=== PATIENT | female | born 1960 | race American Indian/Alaskan Native ===

== ENCOUNTER 2019-09-17 22:25 | Emergency (ER) | payer SELFPAY ==
[2019-09-17] MEDS ORDERED: LORazepam 2 MG/ML VIAL IV ONE (22:55)
[2019-09-17] MEDS ORDERED: GLUCAGON (HUMAN RECOMBINANT) 1 MG/ML INJ IV ONE (22:55)
[2019-09-17] MEDS ORDERED: NITROGLYCERIN 0.4 MG TAB SUBL SL ONE ×2 (23:18→23:19)
--- NOTE | 2019-09-17 23:44 | Emergency Department Report ---
ED General Adult HPI - General Chief complaint: Skin/Abscess/Foreign Body Stated complaint: CHOKING Time Seen by Provider: 09/17/19 22:30 Source: EMS Mode of arrival: Stretcher Limitations: No Limitations - History of Present Illness Initial comments: 58 yo F w/ presents to the ED stating that it feels as if a piece of steak is lodged in her esophagus. No prior history of this. Denies any medical problems. -: This evening Quality: other (pressure) Consistency: constant Improves with: none Worsens with: none Associated Symptoms: nausea/vomiting Treatments Prior to Arrival: none - Related Data Previous Rx's Medication Instructions Recorded Last Taken Type Esomeprazole Magnesium [NexIUM] 40 mg PO QDAY #30 capsule. 09/18/19 Unknown Rx Allergies Allergy/AdvReac Type Severity Reaction Status Date / Time No Known Allergies Allergy Unverified 09/17/19 23:02 ED Review of Systems ROS: Stated complaint: CHOKING Other details as noted in HPI Comment: All other systems reviewed and negative Gastrointestinal: as per HPI ED Past Medical Hx - Medications Home Medications: Home Medications Medication Instructions Recorded Confirmed Last Taken Type Esomeprazole Magnesium [NexIUM] 40 mg PO QDAY #30 capsule. 09/18/19 Unknown Rx ED Physical Exam - General Limitations: No Limitations General appearance: alert, in no apparent distress - Head Head exam: Present: atraumatic, normocephalic - Eye Eye exam: Present: normal appearance, EOMI - ENT ENT exam: Present: mucous membranes moist - Neck Neck exam: Present: normal inspection - Respiratory Respiratory exam: Present: normal lung sounds bilaterally. Absent: respiratory distress - Cardiovascular Cardiovascular Exam: Present: regular rate, normal rhythm - GI/Abdominal GI/Abdominal exam: Present: soft. Absent: distended, tenderness ED Course Vital Signs 09/17/19 09/17/19 09/17/19 22:30 22:44 23:20 Temperature 98.1 F Pulse Rate 115 H 97 H Respiratory 20 20 Rate Blood Pressure 171/131 Blood Pressure 159/93 [Right] O2 Sat by Pulse 99 99 Oximetry 09/18/19 09/18/19 09/18/19 02:24 05:43 07:10 Temperature 98.3 F Pulse Rate 83 89 96 H Respiratory 20 17 20 Rate Blood Pressure 185/89 Blood Pressure 141/78 145/85 [Right] O2 Sat by Pulse 98 99 99 Oximetry 09/18/19 09/18/19 08:01 08:15 Temperature 98.0 F Pulse Rate 75 84 Respiratory 16 20 Rate Blood Pressure 175/86 128/77 Blood Pressure [Right] O2 Sat by Pulse 97 98 Oximetry - Reevaluation(s) Reevaluation #1: 09/17/19 23:42 Pt given ativan, SL nitro, glucagon, coca cola. No improvement. - Consultations Consultation #1: 09/18/19 23:45 Spoke w/ Dr Hagan. Will scope pt first thing in AM. ED Medical Decision Making - Medical Decision Making 58 yo F w/ impacted food bolus, scoped by GI with removal of food bolus. Will d/c home w/ prescriptions. Outpt f/u with GI. - Differential Diagnosis impacted food bolus Critical care attestation.: If time is entered above; I have spent that time in minutes in the direct care of this critically ill patient, excluding procedure time. ED Disposition Clinical Impression: Esophageal obstruction due to food impaction Disposition: DC- TO HOME OR SELFCARE Is pt being admited?: No Condition: Stable Instructions: Food Impaction (ED) Prescriptions: Esomeprazole Magnesium [NexIUM] 40 mg PO QDAY #30 capsule. Referrals: PRIMARY CARE, [Primary Care Provider] - 3-5 Days CLOTILDE HAGAN MD [Staff Physician] - as needed
[2019-09-18] MEDS ORDERED: SODIUM CHLORIDE 0.9% 1000 ML 1,000 ML IV SCH (06:45)
[2019-09-18] MEDS ORDERED: propofoL 200 MG/20 ML VIAL IV ONE ×2 (07:29)
[2019-09-18] MEDS ORDERED: MIDAZOLAM 2 MG/2 ML INJ ONE (07:30)
--- NOTE | 2019-09-18 07:38 | Consultation ---
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 No prior hx of GERD. Denies prior similar symptoms. No weight loss. No CP or SOB. Has mild chest fullness at present. Has hx of panic attacks. Meds reviewed. Past History Past Medical History: hypertension Past Surgical History: Social history: no significant social history Medications and Allergies Allergies Allergy/AdvReac Type Severity Reaction Status Date / Time No Known Allergies Allergy Unverified 09/17/19 23:02 Active Meds: Active Medications Sodium Chloride (Nacl 0.9% 1000 Ml) 1,000 mls @ 50 mls/hr IV DIRECT NILDA Review of Systems All systems: negative (as noted) Exam - Constitutional Vitals: Temp Pulse Resp BP Pulse Ox 98.1 F 89 17 145/85 99 09/17/19 22:30 09/18/19 05:43 09/18/19 05:43 09/18/19 05:43 09/18/19 05:43 General appearance: Present: no acute distress, other (anxious) - EENT Eyes: Present: PERRL, EOM intact ENT: hearing intact - Respiratory Respiratory effort: normal Respiratory: bilateral: CTA - Cardiovascular Rhythm: regular Heart Sounds: Present: S1 & S2 - Extremities Extremities: No edema - Abdominal General gastrointestinal: Present: soft, non-tender Assessment and Plan 1. Esophageal food impaction - will do EGD.
--- NOTE | 2019-09-18 07:39 | Anesthesia Consultation ---
Anesthesia Consult and Med Hx Date of service: 09/18/19 - Airway Anesthetic Teeth Evaluation: Dentures ROM Head & Neck: Adequate Mental/Hyoid Distance: Adequate Mallampati Class: Class II Intubation Access Assessment: Probably Good - Pre-Operative Health Status ASA Pre-Surgery Classification: ASA3 Proposed Anesthetic Plan: MAC - Pulmonary Hx Smoking: Yes (1/2 ppd) Hx Asthma: No Hx Respiratory Symptoms: No SOB: No COPD: No Home Oxygen Therapy: No Hx Pneumonia: No Hx Sleep Apnea: No - Cardiovascular System Hx Hypertension: Yes Hx Coronary Artery Disease: No Hx Heart Attack/AMI: No Hx Angina: No Hx Percutaneous Transluminal Coronary Angioplasty (PTCA): No Hx Cardia Arrhythmia: No Hx Pacemaker: No Hx Internal Defibrillator: No Hx Valvular Heart Disease: No Hx Heart Murmur: No Hx Peripheral Vascular Disease: Yes (blood clot is Left leg 23 years ago) - Central Nervous System Hx Neuromuscular Disorder: No Hx Seizures: No CVA: No Hx Back Pain: No Hx Psychiatric Problems: Yes (anexity ) - Gastrointestinal Hx Ulcer: No Hx Gastroesophageal Reflux Disease: No - Endocrine Hx Renal Disease: No Hx End Stage Renal Disease: No Hx Cirrhosis: No Hx Liver Disease: No Hx Insulin Dependent Diabetes: No Hx Non-Insulin Dependent Diabetes: No Hx Thyroid Disease: No - Hematic Hx Anemia: Yes Hx Sickle Cell Disease: No - Other Systems Hx Alcohol Use: Yes (2-3 shot a day) Hx Substance Use: No Hx Cancer: No Hx Obesity: No
--- NOTE | 2019-09-18 07:40 | Anesthesia Day of Surgery ---
Anesthesia Day of Surgery - Day of Surgery Patient Examined: Yes Patient H&P Reviewed: Yes Patient is NPO: Yes
[2019-09-18] MEDS ORDERED: LIDOCAINE MPF (2%) 20 MG/1 ML VIAL 5 ML ONE (08:00)
--- NOTE | 2019-09-18 08:11 | Post Operative Note ---
Pre-op diagnosis: Esophageal food impaction Post-op diagnosis: same (with proximal esophaeal stenosis and distal esophageal stricture) Findings: 1. 3 cm area of stenosis from 15 to 18 cm from incisors with mucosal erythema through which scope passed readily, with food bolus impacted there that was gently pushed down and into the stomach. 2. Esophageal stricture, focal and inflammatory, located at 33 cm from incisors, through which scope passed readily. 3. 4 cm hiatal hernia. 4. Otherwise normal stomach and duodenum. Procedure: EGD with food bolus disimpaction Anesthesia: MAC Surgeon: CLOTILDE FIGUEROA Estimated blood loss: none Pathology: none Condition: stable Disposition: other (Home, on daily PPI, with outpatient f/u in 2-3 wks, for repeat EGD.)
--- NOTE | 2019-09-18 08:26 | Operative Report ---
PROCEDURE: Upper endoscopy with food bolus disimpaction. SEDATION: MAC by Anesthesia. PREOPERATIVE DIAGNOSIS: Esophageal food impaction. POSTOPERATIVE DIAGNOSIS: Proximal esophageal stenosis, distal esophageal stricture, hiatal hernia, and proximal esophageal food impaction. HISTORY: The patient is a 58-year-old woman with poor dentition, who was eating steak yesterday and developed an acute food impaction where food would not go down and she had some mild chest discomfort and inability to handle secretions. DESCRIPTION OF PROCEDURE: Indications, risks, and benefits were explained and consent was obtained. The patient was placed in left lateral decubitus position and sedated. Video endoscope was passed through the mouth and oropharynx into the proximal esophagus where a meat impaction was encountered. This was gently pushed with the scope tip and dislodged down into the stomach. Scope was then advanced into the duodenal bulb and then gradually withdrawn with close inspection of mucosa. FINDINGS: 1. Proximal esophageal food impaction located just below the upper esophageal sphincter that was dislodged. 2. Proximal esophageal stenosis extending from 15 to 18 cm from the gums with mucosal erythema and mild edema consistent with impaction there. No ulceration was noted. 3. Esophageal stricture located at the Z-line at 33 cm from the incisors. This was focal and inflammatory consistent with reflux induced stricture. 4. A 4 cm hiatal hernia extending from 33 to 37 cm from the gums. 5. Normal stomach. 6. Normal duodenal bulb. The patient tolerated the procedure well without immediate complication. IMPRESSION: 1. Proximal esophageal stenosis -- food impacted there. 2. Distal esophageal stricture -- likely inflammatory due to gastroesophageal reflux disease. 3. Hiatal hernia. PLAN: 1. Chronic proton pump inhibitors. 2. Repeat endoscopy after 2 weeks to reassess the area, and dilate and biopsy as needed. 3. The patient encouraged to chew food more carefully, as she has poor dentition and loose fitting dentures. JOB# [id number] HRC/NTS
--- NOTE | 2019-09-18 08:49 | Post Anesthesia Evaluation ---
- Post Anesthesia Evaluation Patient Participated: Yes Airway Patent: Yes Stable Respiratory Function: Yes Nausea/Vomiting: No Temp > 96.8F: Yes Pain Manageable: Yes Adequeate Hydration: Yes Anesthesia Complications: No Block Receding Appropriately: Not Applicable Patient on Ventilator: No
[2019-09-18 09:17] VITALS: BP 128/77
== END 2019-09-18 08:44 | disposition home or self-care (01) ==
LOC: ED 22:25
DX: K22.2 Esophageal obstruction (principal)
CPT/HCPCS: 96374; 96375; 99283; J1610; J2060; J2250; J2704; J7030